=== PATIENT | female | born 1985 | race Caucasian/White ===

== ENCOUNTER → 2016-10-09 | Outpatient (CLI) | payer OTHER ==
[~2016-10-09] MED LIST: AMOX500C3 PO; PRENTAB26 PO
== END | disposition home or self-care (01) ==
LOC: C.PAPS 10:26
PROVIDERS: ATTEND Obstetrics & Gynecology
DX: Z12.4 Encounter for screening for malignant neoplasm of cervix (principal); Z11.51 Encounter for screening for human papillomavirus (HPV)

== ENCOUNTER 2019-12-10 02:44 | Inpatient (IN) ==
[2019-12-10] MEDS ORDERED: LACTATED RINGER'S 1,000 ML IV PRN (03:22)
[2019-12-10] MEDS ORDERED: PENICILLIN G POTASSIUM 3 MU in DEXTROSE 5% 100 ML IV PRN (03:23)
[2019-12-10] MEDS ORDERED: BETAMETH SOD PHOS/ACETATE IA 6 MG/ML IM STA (03:23)
[2019-12-10] MEDS ORDERED: PENICILLIN G POTASSIUM 6 MU in DEXTROSE 5% 250 ML IV STA (03:23)
--- NOTE | 2019-12-10 03:26 | History & Physical Report ---
Date of Service December 10, 2019 Assessment & Plan (1) : Admit to L&D. Labs, EFM/toco, plans for epidural. Reviewed risks of attempt of vaginal twin delivery vs section. She would like to attempt vaginal delivery. Pcn G for GBS prophylaxis. Betamethasone for delivery <37w. CMP with admission labs for gHTN. History of Present Illness Chief Complaint: labor Primary Care Provider: Bobby Faria MD 33yo @ 36 0/7, spontaneous labor. Twins - di/di. Clear ROM at 2 am. complicated by: Obesity complicating , -growth scan at 32 weeks History of PIH first - Baby ASA Twin , dichorionic/diamniotic *Baby ASA daily start 12-28wks until delivery *Anatomy scan @20wks *Serial growth US/S starting @24wks *Wkly NST's @32wks, twice wkly @36wks(nml growth) *Twice wkly NST's @32wks, ICSI or abnml growth *MD visits Q2wks @24wks & Qwk @32wks Gest HTN Biweekly NSTs Weekly CBC, liver profile Induction 12/18 Allergies Allergy/AdvReac Type Severity Reaction Status Date / Time bee venom protein (honey bee) Allergy Severe ANAPHYLAXIS Verified 12/10/19 03:07 No Known Drug Allergies Allergy nkda Verified 12/10/19 03:07 Home Medications Home Medications Medication Instructions Recorded Confirmed Type prenat.vits,thai,yxn-dvso-lfmym 1 tab PO DAILY 05/26/19 12/10/19 History aspirin [Aspirin Low Dose] 81 mg PO DAILY 11/22/19 12/10/19 History Patient History Medical History Abnormal biochemical finding on screening of mother Encounter for anatomic survey Encounter for pre-operative examination History of induced hypertension Low iron HX OF Migraine Migraine Normal delivery atony of uterus with hemorrhage hemorrhage FEBRUARY 2014 Preeclampsia (02/20/14) induced hypertension with history of miscarriage Urinary retention Varicella Surgical History H/O dilation and curettage D&E with curettage 2019 S/P wisdom tooth extraction Family History Grandmother (Maternal) Diabetes Hypertension Ovarian cancer Sister Gestational diabetes Autism Placenta previa Family/Other Heart disease Mother Breast cancer Uterine cancer Social History Smoking Status: Never smoker Second Hand Exposure: Yes ("OCCASIONALLY"); Hx Alcohol Use: No Hx Substance Use: No Preferred Language: Kazakh Communication Ability: Effective Cloth Examiner Machine Required: No Beliefs That Will Affect Care: None marital status: marital status details: Amando Wright (33) [phone] Current Living Situation: Spouse and Family Current Living Situation Comment: 2 dogs current occupational status: employed current occupation: Psychologist with [employer] Other Information That Helps Us Care for You: No Feels Safe at Home: Yes Safety Concerns: Feels Safe At This Time Review of Systems All systems reviewed & are unremarkable except as noted in HPI & below Physical Exam Physical Exam: FHT Cat 1 for both babies. [place] Q 2 Limited bedside US - cephalic/cephalic Cervix 690/0 Constitutional: WD/WN, vitals as above Respiratory: normal respiratory effort, lungs clear to auscultation no respiratory distress Cardiovascular: Rate/Rhythm: regular rate and regular rhythm Gastrointestinal (Abdomen): Inspection/Auscultation: abdomen normal to inspection Percussion/Palpation: abdomen soft; abdomen nontender Gravid. No s/s chorio or abruption. Skin: no rashes, warm and dry Psychiatric: A+Ox3, euthymic affect Results & Data ([facility]) Vital Signs (Past 12 Hours) Vital Signs Temp Pulse Resp BP 12/10/19 03:04 36.8 C 109 H 20 135/92 Coding Level of Care Code None Diagnoses Z34.90
[2019-12-10] MEDS ORDERED: ePHEDrine sulfate 50 MG/ML AMP ONE (03:41)
[2019-12-10] MEDS ORDERED: BUPIVACAINE 0.25% 30 ML VIAL ONE (03:41)
[2019-12-10] MEDS ORDERED: fentaNYL citrate 100 MCG/2 ML VIAL ONE ×2 (03:41→10:36)
[2019-12-10] MEDS ORDERED: fentaNYL 2MCG/ML ROPIV 1.25MG/ML 100 ML BAG EPI ONE (03:42)
[2019-12-10 03:58] LABS: Hematocrit (blood only) 38.2 % (37-47); Hemoglobin 13.2 g/dL (12.0-16.0); Mean Corpuscular Hemoglobin 32.4 pg (25-34); Mean Corpuscular Volume 93.6 fL (80-100); Mean Platelet Volume 11.9 fL (7.4-10.4); Platelet Count 166 K/uL (130-400); RDW Coefficient of Variation 12.6 % (11.5-14.5); Red Blood Count 4.08 M/uL (4.2-5.4); White Blood Count 10.03 K/uL (4.8-10.8)
--- NOTE | 2019-12-10 04:16 | Anesthesiology Consultation ---
Date of Service December 10, 2019 Assessment & Plan Chart Review Chart Review: Acceptable Risk for Surgery, Patient NOT seen in Pre Admission Testing and Acceptable Risk for Labor Epidural Consults Requested none ASA ASA3 Proposed Anesthesia Anesthesia Type: Labor Epidural and CSE Risk / Benefits Reviewed With: PT / POA / Parent / Guardian, Accepts Plan and Informed Consent Obtained Additional Comments: covid test neg. History Height/Weight Height: 5 ft 10 in Weight: 127.913 kg Allergies Allergy/AdvReac Type Severity Reaction Status Date / Time bee venom protein (honey bee) Allergy Severe ANAPHYLAXIS Verified 12/10/19 03:07 No Known Drug Allergies Allergy nkda Verified 12/10/19 03:07 Medications Home Medications Medication Instructions Recorded Confirmed Last Taken prenat.vits,thai,ddo-tnzb-kyhjf 1 tab PO DAILY 05/26/19 12/10/19 12/09/19 17:00 aspirin [Aspirin Low Dose] 81 mg PO DAILY 11/22/19 12/10/19 12/09/19 17:00 Active Medications Generic Name Dose Route Start Last Admin Trade Name Freq PRN Reason Stop Dose Admin Lactated Ringer's 1,000 mls @ 125 mls/hr 12/10/19 03:22 12/10/19 03:33 Lr IV 12/12/19 03:21 999 mls/hr .Q8H PRN Administration L&D Protocol Protocol Penicillin G Potassium 6 mu/ 262 mls @ 262 mls/hr 12/10/19 03:23 12/10/19 03:37 Dextrose IV 12/10/19 04:22 262 mls/hr NOW STA Administration NPO Date Last Intake of Fluids: 12/10/19 Time Last Intake of Fluids: 03:00 Date Last Intake of Solids: 12/09/19 Time Last Intake of Solids: 21:00 Past Medical History Medical History Abnormal biochemical finding on screening of mother Encounter for anatomic survey Encounter for pre-operative examination History of induced hypertension Low iron HX OF Migraine Migraine Normal delivery atony of uterus with hemorrhage hemorrhage FEBRUARY 2014 Preeclampsia (02/20/14) induced hypertension with history of miscarriage Urinary retention Varicella Exercise / Class Metabolic Activity III < 4 Walking/Shop/Light housework Past Family History Family History Grandmother (Maternal) Diabetes Hypertension Ovarian cancer Sister Gestational diabetes Autism Placenta previa Family/Other Heart disease Mother Breast cancer Uterine cancer Past Surgical History Surgical History H/O dilation and curettage D&E with curettage 2019 S/P wisdom tooth extraction Past Anesthesia History No Hx of Anesthesia Complications and No Family Hx of Anesthesia Complications History of PONV No Hx of PONV and No Hx of Motion Sickness Social History Smoking Status: Never smoker Hx Alcohol Use: No Alcohol type: beer, wine and hard liquor alcohol intake frequency: a few times a month Hx Substance Use: No substance use type: does not use Physical Exam Vital Signs Last Vital Signs Temp 36.8 C 12/10/19 03:04 Pulse 112 H 12/10/19 04:12 Resp 20 12/10/19 03:04 BP 154/93 H 12/10/19 04:07 Pulse Ox 100 12/10/19 04:12 Constitutional + morbidly obese ENMT Mouth: no dentition abnormality Thyromental Distance: > or= 3.5 Finger Breadths Mallampati Class: II Neck normal visual inspection and trachea midline Respiratory normal respiratory effort Auscultation: lungs clear to auscultation bilaterally Cardiovascular Rate/Rhythm: regular rate and regular rhythm Heart Sounds: no murmur Vessels: no carotid bruit Musculoskeletal Spine: lumbar spine normal to inspection; normal cervical ROM Neurologic moves all extremities Motor/Sensory: no sensory deficit Psychiatric Orientation: alert and oriented x 3 Testing Laboratory Results 12/10/19 03:41
[2019-12-10 04:17] LABS: Albumin Level 2.5 gm/dl (3.4-5.0); Calcium 9.8 mg/dl (8.5-10.1); Creatinine Clr Calc Pharmacy 166.5 ml/min; Est GFR (African American) 131.9; Est GFR (Non-African American) 113.8; Potassium 3.9 mmol/L (3.5-5.1)
[2019-12-10 04:20] LABS: Albumin Globulin Ratio 0.7 (0.9-2); Bilirubin,Total 0.6 mg/dl (0.2-1); Globulin 3.6 gm/dl (2.5-4.0); Total Protein 6.1 gm/dl (6.4-8.2)
[2019-12-10 04:22] LABS: Mean Corpuscular Hgb Conc 34.6 g/dL (32-36)
[2019-12-10] MEDS ORDERED: fentaNYL 2MCG/ML ROPIV 1.25MG/ML 100 ML BAG EPI PRN (04:46)
[2019-12-10] MEDS ORDERED: PROMETHAZINE HCL 25 MG in SODIUM CHLORIDE 0.9% 50 ML IV PRN (04:46)
[2019-12-10] MEDS ORDERED: NALOXONE HCL 0.4 MG/1 ML VIAL/CARP IV PRN (04:46)
[2019-12-10] MEDS ORDERED: NALOXONE HCL 1 MG in SODIUM CHLORIDE 0.9% 1000ML 1,000 ML IV PRN (04:46)
[2019-12-10] MEDS ORDERED: ONDANSETRON INJ 2 MG/ML 2 ML VIAL IV PRN ×3 (04:46→10:25)
[2019-12-10] MEDS ORDERED: DiphenhydrAMINE HCL 50 MG/ML VIAL IV PRN (04:46)
[2019-12-10] MEDS ORDERED: ePHEDrine sulfate 50 MG/ML AMP IV PRN ×2 (04:46→10:25)
[2019-12-10] MEDS: OXYTOCIN 30 UNITS/500 ML BAG IV PRN ×2 (05:50→06:46)
--- NOTE | 2019-12-10 06:47 | Delivery Summary ---
Vaginal Delivery Summary Date of Service December 10, 2019 Vaginal Delivery Summary Vaginal Delivery Summary: Pre-delivery diagnoses: 33yo @ 36 0/7, spontaneous labor, di/di twins, Rh neg, obesity, gHTN Post-delivery diagnoses: same Procedure: Spontaneous vaginal delivery Surgeon: Annmarie Johnson DO Business Continuity Planner: Manny Cervantes MD Complications: none Findings: Baby A: Viable female , Apgars 9/9. Baby B: Viable male , Apgars 9/9. Weight pending, please see nursery records Estimated blood loss: 300ml Description of delivery: The patient progressed to complete with epidural anesthesia. She was then taken to the operating room with a double setup for both vaginal delivery and section if needed. All parties were present prior to pushing - 2 obstetricians, net web developer, and anesthesiologist. She then began to push. She spontaneously vaginally delivered a viable from the cephalic presentation. No nuchal cord. The head delivered in EBER position. The anterior shoulder delivered, followed by the posterior shoulder, followed by the body. A spontaneous cry was heard. The cord was doubly clamped and cut and the baby was handed off to the waiting net web developer. Ultrasound confirmed cephalic presentation of second baby. AROM was performed with an amnihook, and Baby B's head was guided into the pelvis with packing line operator's hand. Baby B was delivered from an occiput posterior presentation, bilateral shoulders and body followed. No nuchal cord. Cord blood was obtained. Placenta A avulsed from the umbilical cord during delivery attempt, and therefore Placenta B was delivered spontaneously intact, then Placenta A was delivered via manual extraction. Sweep of the uterus revealed no remaining placental fragments. The uterus and vagina were swept of clots and debris. IV pitocin was given. The uterus became firm. The cervix, vagina, and perineum were inspected and a superficial laceration was noted in left labia minora near urethra. This was bleeding, therefore it was reapproximated with 3-0 vicryl in a running locked stitch. Excellent hemostasis was achieved. The mother and babies are recovering in stable and good condition- mother will be moved back into her labor room, and babies have been taked to the nursery for further routine eval. Sponge, needle and instrument counts were correct x 2. Annmarie B. Alex, DO FACOOG [facility] Vaginal Delivery Charge Vaginal Delivery Codes: 49582 global code for the antepartum, delivery, and post-
[2019-12-10] MEDS ORDERED: METHYLERGONOVINE MALEATE 0.2 MG/ML AMP ONE (06:58)
[2019-12-10] MEDS ORDERED: METHYLERGONOVINE MALEATE 0.2 MG/ML AMP IM STA (07:00)
[2019-12-10] MEDS ORDERED: DIPHTHERIA/TETANUS/PERTUSSIS 0.5 ML SYR/VIAL IM ONE (07:10)
[2019-12-10] MEDS ORDERED: OXYTOCIN 30 UNITS/500 ML BAG IV PRN (07:10)
[2019-12-10] MEDS ORDERED: HYDROCORTISONE ACETATE 25 MG SUPP PR PRN (07:10)
[2019-12-10] MEDS ORDERED: SUPERCREAM 0.870% 15 GM JAR EXT PRN (07:10)
[2019-12-10] MEDS ORDERED: OXYCODONE/ACETAMINOPHEN 5mg/325mg TAB PO PRN (07:10)
[2019-12-10] MEDS ORDERED: bisacodyL 10 MG SUPP PR PRN (07:10)
[2019-12-10] MEDS ORDERED: BENZOCAINE 20% AER SPR 82.5 GM CAN EXT PRN (07:10)
[2019-12-10] MEDS ORDERED: ACETAMINOPHEN 325 MG TAB PO PRN (07:10)
[2019-12-10] MEDS ORDERED: CARBOPROST TROMETHAMINE 250 MCG/ML AMPUL IM ONE (07:34)
[2019-12-10] MEDS ORDERED: CARBOPROST TROMETHAMINE 250 MCG/ML AMPUL ONE (07:34)
[2019-12-10] MEDS ORDERED: TRANEXAMIC ACID / 0.7% NACL 1,000 MG/100 ML BAG IV STA (07:34)
[2019-12-10] MEDS ORDERED: TRANEXAMIC ACID / 0.7% NACL 1000MG/100ML BAG IV ONE (07:35)
--- NOTE | 2019-12-10 07:39 | Obstetrical Progress Note ---
Date of Service December 10, 2019 Assessment & Plan Admission and Anticipated Discharge Date Admission Date: December 10, 2019 Subjective Called to room for expression of large amount of clots from vagina - weighed for 970cc. 1 dose methergine given. Bleeding appeared to resolve to a normal lochia. Then, was called back to room with another 145cc blood (weighed chux and pad). Will place shannon, check CBC and coags. Tranexamic acid, hemabate and continue pitocin. On exam, uterus is firm. Patient is awake, sitting up, talking and comfortably. Vitals stable. Results & Data ([facility]) Vital Signs (Past 12 Hours) Vital Signs Temp Pulse Resp BP Pulse Ox 12/10/19 07:25 99 H 138/88 12/10/19 07:10 93 H 132/88 12/10/19 06:54 96 H 18 136/82 12/10/19 06:40 88 18 130/79 12/10/19 06:36 18 12/10/19 06:25 88 137/76 12/10/19 06:12 100 H 98 12/10/19 06:07 108 H 98 12/10/19 06:02 102 H 98 12/10/19 05:58 91 H 152/119 H 12/10/19 05:57 103 H 98 12/10/19 05:52 117 H 99 12/10/19 05:47 114 H 98 12/10/19 05:44 126 H 136/98 12/10/19 05:42 147 H 100 12/10/19 05:40 108 H 92 12/10/19 05:37 124 H 100 12/10/19 05:33 101 H 91 12/10/19 05:32 104 H 97 12/10/19 05:29 100 H 18 132/92 12/10/19 05:17 101 H 140/74 12/10/19 05:13 109 H 18 142/79 H 12/10/19 05:12 106 H 100 12/10/19 05:07 117 H 100 12/10/19 05:02 105 H 99 12/10/19 05:01 118 H 18 137/96 12/10/19 04:58 36.5 C 109 H 18 143/85 H 12/10/19 04:57 108 H 100 12/10/19 04:55 112 H 121/69 12/10/19 04:52 107 H 18 125/72 99 12/10/19 04:50 116 H 91 12/10/19 04:49 115 H 122/65 12/10/19 04:47 114 H 99 12/10/19 04:46 107 H 131/81 12/10/19 04:43 98 H 127/62 12/10/19 04:42 104 H 98 12/10/19 04:40 100 H 149/84 H 12/10/19 04:37 114 H 18 144/96 H 98 12/10/19 04:34 116 H 18 144/91 H 12/10/19 04:32 119 H 99 12/10/19 04:27 124 H 95 12/10/19 04:22 115 H 100 12/10/19 04:17 110 H 99 12/10/19 04:12 112 H 100 12/10/19 04:07 99 H 154/93 H 99 12/10/19 04:02 95 H 100 12/10/19 03:57 99 H 99 12/10/19 03:52 95 H 98 12/10/19 03:47 98 H 99 12/10/19 03:04 36.8 C 109 H 20 135/92 PG Care Time/CCT Total # of Minutes Spent Total Time Spent with Patient: Total time spent is greater than 50% in coordination of care (as documented) at patient's floor/unit and/or counseling patient: Coding Level of Care Code None
[2019-12-10] MEDS: CEFAZOLIN 1000MG 1,000 MG/7.5 ML SYR IV SCH ×3 (07:51→23:40)
[2019-12-10] MEDS ORDERED: ONDANSETRON INJ 2 MG/ML 2 ML VIAL ONE (07:58)
[2019-12-10 08:06] LABS: Hemoglobin 13.3 g/dL (12.0-16.0); Mean Corpuscular Hemoglobin 32.4 pg (25-34); Mean Corpuscular Volume 92.7 fL (80-100); Mean Platelet Volume 11.7 fL (7.4-10.4); Platelet Count 177 K/uL (130-400); RDW Coefficient of Variation 12.5 % (11.5-14.5); RDW Standard Deviation 42.4 fL (36.4-46.3); White Blood Count 17.61 K/uL (4.8-10.8)
[2019-12-10 08:16] LABS: Fibrinogen 392 mg/dl (184-400); Partial Thromboplastin Ratio 1.1; Partial Thromboplastin Time 31.2 Seconds (21.0-31.0); Prothrombin Time 10.8 Seconds (9.0-12.0)
--- NOTE | 2019-12-10 08:40 | Anesthesia Procedure Note ---
Date of Service December 10, 2019 Anesthesia Post Epidural Note Vital Signs Vital Signs: Temp Pulse Resp BP Pulse Ox 36.5 C 88 20 141/75 H 98 12/10/19 04:58 12/10/19 08:24 12/10/19 07:25 12/10/19 08:24 12/10/19 06:12 Notes Mental Status: alert / awake / arousable Nausea / Vomiting: adequately controlled Pain: adequately controlled Airway Patency, RR, SpO2: stable & adequate BP & HR: stable & adequate Hydration State: stable & adequate Neuraxial Anesthesia: was administered and sensory block is resolving Anesthetic Complications: no major complications apparent Epidural: Removed without complications and With tip intact
[2019-12-10] MEDS: OXYTOCIN 20 UNITS in LACTATED RINGER'S 1,000 ML IV SCH ×2 (09:43→14:20)
--- NOTE | 2019-12-10 10:01 | Obstetrical Progress Note ---
Date of Service Patient continues to have bleeding I did an examination in the room at that time it appeared to be a possible cervical laceration the patient's epidural had been removed at this stage I could not comfortably visualize whether this was a full laceration or just the shape of the cervix extending posteriorly however it does look like a laceration and she still is actively bleeding and needs an exam regardless anesthesia has been consulted I called Dr. Gan and as well we will examine possible repair cervical laceration exam under anesthesia note her labs are normal at this stage from 7:30 in the morning her INR is normal her PTT is top normal range her hemoglobin is over 13 discussed the risks of doing this however since she is actively bleeding I do not think it is an option to monitor the situation further without intervention December 10, 2019 Assessment & Plan Admission and Anticipated Discharge Date Admission Date: December 10, 2019 Results & Data ([facility]) Vital Signs (Past 12 Hours) Vital Signs Temp Pulse Resp BP Pulse Ox 12/10/19 09:55 67 146/79 H 12/10/19 09:39 67 140/91 12/10/19 09:10 77 147/93 H 12/10/19 08:54 80 142/78 H 12/10/19 08:40 20 12/10/19 08:39 82 140/74 12/10/19 08:25 20 12/10/19 08:24 88 141/75 H 12/10/19 08:10 84 20 140/73 12/10/19 07:54 78 152/92 H 12/10/19 07:51 80 152/92 H 12/10/19 07:50 20 12/10/19 07:25 99 H 20 138/88 12/10/19 07:10 93 H 20 132/88 12/10/19 06:54 96 H 18 136/82 12/10/19 06:40 88 18 130/79 12/10/19 06:36 18 12/10/19 06:25 88 137/76 12/10/19 06:12 100 H 98 12/10/19 06:07 108 H 98 12/10/19 06:02 102 H 98 12/10/19 05:58 91 H 152/119 H 12/10/19 05:57 103 H 98 12/10/19 05:52 117 H 99 12/10/19 05:47 114 H 98 12/10/19 05:44 126 H 136/98 12/10/19 05:42 147 H 100 12/10/19 05:40 108 H 92 12/10/19 05:37 124 H 100 12/10/19 05:33 101 H 91 12/10/19 05:32 104 H 97 12/10/19 05:29 100 H 18 132/92 12/10/19 05:17 101 H 140/74 12/10/19 05:13 109 H 18 142/79 H 12/10/19 05:12 106 H 100 12/10/19 05:07 117 H 100 12/10/19 05:02 105 H 99 12/10/19 05:01 118 H 18 137/96 12/10/19 04:58 97.7 F 109 H 18 143/85 H 12/10/19 04:57 108 H 100 12/10/19 04:55 112 H 121/69 12/10/19 04:52 107 H 18 125/72 99 12/10/19 04:50 116 H 91 12/10/19 04:49 115 H 122/65 12/10/19 04:47 114 H 99 12/10/19 04:46 107 H 131/81 12/10/19 04:43 98 H 127/62 12/10/19 04:42 104 H 98 12/10/19 04:40 100 H 149/84 H 12/10/19 04:37 114 H 18 144/96 H 98 12/10/19 04:34 116 H 18 144/91 H 12/10/19 04:32 119 H 99 12/10/19 04:27 124 H 95 12/10/19 04:22 115 H 100 12/10/19 04:17 110 H 99 12/10/19 04:12 112 H 100 12/10/19 04:07 99 H 154/93 H 99 12/10/19 04:02 95 H 100 12/10/19 03:57 99 H 99 12/10/19 03:52 95 H 98 12/10/19 03:47 98 H 99 12/10/19 03:04 98.2 F 109 H 20 135/92 PG Care Time/CCT Total # of Minutes Spent Total Time Spent with Patient: Total time spent is greater than 50% in coordination of care (as documented) at patient's floor/unit and/or counseling patient: Coding Level of Care Code None
--- NOTE | 2019-12-10 10:10 | Anesthesiology Consultation ---
Date of Service December 10, 2019 Assessment & Plan (1) Encounter for pre-operative examination: Chart Review Chart Review: Acceptable Risk for Surgery Consults Requested none ASA [id number] Proposed Anesthesia Anesthesia Type: Spinal Risk / Benefits Reviewed With: PT / POA / Parent / Guardian, Accepts Plan and Informed Consent Obtained History Surgery Operation Date: 12/10/19 09:30 Proposed Procedures p Labor Delivery Repair Vaginal Laceration - Jayme Cervantes MD, FACOG Height/Weight Height: 5 ft 10 in Weight: 127.913 kg Allergies Allergy/AdvReac Type Severity Reaction Status Date / Time bee venom protein (honey bee) Allergy Severe ANAPHYLAXIS Verified 12/10/19 03:07 No Known Drug Allergies Allergy nkda Verified 12/10/19 03:07 Medications Home Medications Medication Instructions Recorded Confirmed Last Taken prenat.vits,thai,mgl-wthv-bgaip 1 tab PO DAILY 05/26/19 12/10/19 12/09/19 17:00 aspirin [Aspirin Low Dose] 81 mg PO DAILY 11/22/19 12/10/19 12/09/19 17:00 Active Medications Generic Name Dose Route Start Last Admin Trade Name Freq PRN Reason Stop Dose Admin Oxytocin 30 units in 500 mls @ 333.333 mls/hr 12/10/19 07:10 12/10/19 07:50 Pitocin IV 01/09/20 07:09 59.94 units/hr .Q1H30M PRN 999 mls/hr Bleeding Control Administration Protocol 20 UNITS/HR Cefazolin Sodium 1,000 mg in 7.5 mls @ 2.5 mls/min 12/10/19 07:30 12/10/19 07:51 Ancef 1000mg IV 12/10/19 23:32 2.5 mls/min Q8H RICHARD Administration Oxytocin 20 units/ Lactated 1,002 mls @ 125 mls/hr 12/10/19 09:15 12/10/19 09:43 Ringer's IV 12/10/19 17:15 125 mls/hr .Q8H1M RICHARD Administration NPO Date Last Intake of Fluids: 12/10/19 Time Last Intake of Fluids: 03:00 Date Last Intake of Solids: 12/09/19 Time Last Intake of Solids: 21:00 Past Medical History Medical History Abnormal biochemical finding on screening of mother Encounter for anatomic survey Encounter for pre-operative examination History of induced hypertension Low iron HX OF Migraine Migraine Normal delivery atony of uterus with hemorrhage hemorrhage FEBRUARY 2014 Preeclampsia (02/20/14) induced hypertension with history of miscarriage Urinary retention Varicella Exercise / Class Metabolic Activity II 4-5 Yardwork/Stairs/Walk up hill Past Family History Family History Grandmother (Maternal) Diabetes Hypertension Ovarian cancer Sister Gestational diabetes Autism Placenta previa Family/Other Heart disease Mother Breast cancer Uterine cancer Past Surgical History Surgical History H/O dilation and curettage D&E with curettage 2019 S/P wisdom tooth extraction Past Anesthesia History No Hx of Anesthesia Complications and No Family Hx of Anesthesia Complications History of PONV No Hx of PONV and No Hx of Motion Sickness Social History Smoking Status: Never smoker Hx Alcohol Use: No Alcohol type: beer, wine and hard liquor alcohol intake frequency: a few times a month Hx Substance Use: No substance use type: does not use Physical Exam Vital Signs Last Vital Signs Temp 98.6 F 12/10/19 09:10 Pulse 67 12/10/19 09:55 Resp 20 12/10/19 08:40 BP 146/79 H 12/10/19 09:55 Pulse Ox 98 12/10/19 06:12 ENMT Mouth: no dentition abnormality Thyromental Distance: > or= 3.5 Finger Breadths Mallampati Class: III Neck normal visual inspection Respiratory normal respiratory effort Auscultation: lungs clear to auscultation bilaterally Cardiovascular Rate/Rhythm: regular rate and regular rhythm Testing Laboratory Results 12/10/19 07:47 12/10/19 03:41 PT 10.8 Seconds (9.0-12.0) 12/10/19 07:47 INR 1.0 (0.9-1.1) 12/10/19 07:47 APTT 31.2 Seconds (21.0-31.0) H 12/10/19 07:47
[2019-12-10] MEDS ORDERED: ATROPINE SULFATE 0.1 MG/ML 10ML SYR IV PRN (10:25)
[2019-12-10] MEDS ORDERED: fentaNYL citrate 100 MCG/2 ML VIAL IV PRN (10:25)
[2019-12-10] MEDS ORDERED: CEFAZOLIN 250 MG/ML 1 GM VIAL ONE (10:36)
[2019-12-10] MEDS ORDERED: SILVER NITR/POTASSIUM NITRATE APPLICATOR ONE (11:09)
--- NOTE | 2019-12-10 11:19 | Operative Report ---
PG Post Operative Report Pre & Post Diagnosis Operation Date: 12/10/19 09:30 Pre-Op Diagnosis: Post hemohrrage Twins Post-Op Diagnosis: Exam under anesthesia Repair of cervical laceration I identified the patient and participated in the time-out.: Yes Procedure Operation Date: 12/10/19 09:30 Actual Procedures p Labor Delivery Repair Vaginal Laceration(Bilateral) - Jayme Cervantes MD, FACOG Surgeon Jayme Cervantes MD, FACOG Valet Parker Dr. Johnson Estimated Blood Loss 150 Findings Consistent with Post-Op Diagnosis Specimens POC Description of Procedure Patient given a spinal anesthetic prepped and draped in dorsal lithotomy position Sumner catheter in place compression stockings applied weighted speculum placed in the vagina Betadine used to irrigate and cleanse the vagina and cervix the cervix was fully examined there was a tear between 4 and 5:00 on the cervix that extended for 3 to 4 cm. There was some bleeding from this part of the cervix to ensure that this was not the only cause of bleeding we also did a bimanual exam both me and Dr. Koo which may have been clot and may have been placenta the uterus was firm there was no perforation to it did extract some tissue. It should be noted the patient required some fentanyl at this time to allow that part of the exam at the end we felt we removed as much as possible The laceration was then repaired with 3-0 Vicryl we started at the apex and ensured closure doing a running nonlocked suture. We then did a reinforcing layer as well. We ensured the cervix was still patent after closing the laceration. There was a small lateral vaginal bleeding site which was treated with silver nitrate bleeding was at the end of the procedure much more minimal hemostasis seemed improved we did push on the uterus and there was some bleeding from fundal massage however it seemed more within normal range of after twin delivery I attest to the content of the Intraoperative Record and any orders documented therein. Any exceptions are noted below.
--- NOTE | 2019-12-10 11:41 | Anesthesiology Progress Note ---
Date of Service December 10, 2019 Anesthesia Post Procedure Vital Signs Vital Signs: Temp Pulse Resp BP Pulse Ox 12/10/19 11:38 63 93 12/10/19 11:35 62 137/76 97 12/10/19 11:33 69 142/110 H 12/10/19 11:32 72 94 12/10/19 11:30 67 97 12/10/19 11:25 67 97 12/10/19 11:22 62 133/87 12/10/19 10:09 61 131/80 12/10/19 09:55 67 146/79 H 12/10/19 09:39 67 140/91 12/10/19 09:10 98.6 F 77 147/93 H 12/10/19 08:54 80 142/78 H 12/10/19 08:40 20 12/10/19 08:39 82 140/74 12/10/19 08:25 20 12/10/19 08:24 88 141/75 H 12/10/19 08:10 84 20 140/73 12/10/19 07:54 78 152/92 H 12/10/19 07:51 80 152/92 H 12/10/19 07:50 20 12/10/19 07:25 99 H 20 138/88 12/10/19 07:10 98.4 F 93 H 20 132/88 12/10/19 06:54 96 H 18 136/82 12/10/19 06:40 88 18 130/79 12/10/19 06:36 18 12/10/19 06:25 88 137/76 12/10/19 06:12 100 H 98 12/10/19 06:07 108 H 98 12/10/19 06:02 102 H 98 12/10/19 05:58 91 H 152/119 H 12/10/19 05:57 103 H 98 12/10/19 05:52 117 H 99 12/10/19 05:47 114 H 98 12/10/19 05:44 126 H 136/98 12/10/19 05:42 147 H 100 12/10/19 05:40 108 H 92 12/10/19 05:37 124 H 100 12/10/19 05:33 101 H 91 12/10/19 05:32 104 H 97 12/10/19 05:29 100 H 18 132/92 12/10/19 05:17 101 H 140/74 12/10/19 05:13 109 H 18 142/79 H 12/10/19 05:12 106 H 100 12/10/19 05:07 117 H 100 12/10/19 05:02 105 H 99 12/10/19 05:01 118 H 18 137/96 12/10/19 04:58 97.7 F 109 H 18 143/85 H 12/10/19 04:57 108 H 100 12/10/19 04:55 112 H 121/69 12/10/19 04:52 107 H 18 125/72 99 12/10/19 04:50 116 H 91 12/10/19 04:49 115 H 122/65 12/10/19 04:47 114 H 99 12/10/19 04:46 107 H 131/81 12/10/19 04:43 98 H 127/62 12/10/19 04:42 104 H 98 12/10/19 04:40 100 H 149/84 H 12/10/19 04:37 114 H 18 144/96 H 98 12/10/19 04:34 116 H 18 144/91 H 12/10/19 04:32 119 H 99 12/10/19 04:27 124 H 95 12/10/19 04:22 115 H 100 12/10/19 04:17 110 H 99 12/10/19 04:12 112 H 100 12/10/19 04:07 99 H 154/93 H 99 12/10/19 04:02 95 H 100 12/10/19 03:57 99 H 99 12/10/19 03:52 95 H 98 12/10/19 03:47 98 H 99 12/10/19 03:04 98.2 F 109 H 20 135/92 Transfer of Care Handoff Completed per policy Notes Mental Status: alert / awake / arousable and participated in evaluation Nausea / Vomiting: adequately controlled Pain: adequately controlled Airway Patency, RR, SpO2: stable & adequate BP & HR: stable & adequate Hydration State: stable & adequate Neuraxial Anesthesia: was administered and sensory block is resolving Anesthetic Complications: no major complications apparent and Pt Satisfied with anesthetic care
[2019-12-10 11:52] LABS: Basophils # (auto) 0.01 K/uL (0-0.2); Basophils % (auto) 0.1 %; Hematocrit (blood only) 37.7 % (37-47); Hemoglobin 13.6 g/dL (12.0-16.0); Immature Granulocytes # (auto) 0.07 K/uL (0.00-0.02); Immature Granulocytes % (auto) 0.4 %; Lymphocytes # (auto) 1.16 K/uL (1.2-3.4); Lymphocytes % (auto) 5.9 %; Mean Corpuscular Hemoglobin 33.3 pg (25-34); Mean Corpuscular Hgb Conc 36.1 g/dL (32-36); Mean Corpuscular Volume 92.4 fL (80-100); Mean Platelet Volume 11.6 fL (7.4-10.4); Monocytes # (auto) 0.42 K/uL (0.11-0.59); Monocytes % (auto) 2.1 %; Neutrophils # (auto) 17.98 K/uL (1.4-6.5); Neutrophils % (auto) 91.5 %; Platelet Count 178 K/uL (130-400); RDW Coefficient of Variation 12.3 % (11.5-14.5); RDW Standard Deviation 41.7 fL (36.4-46.3); Red Blood Count 4.08 M/uL (4.2-5.4); White Blood Count 19.64 K/uL (4.8-10.8)
[2019-12-10 12:03] LABS: Partial Thromboplastin Ratio 1.2; Partial Thromboplastin Time 32.7 Seconds (21.0-31.0); Prothrombin Time 10.9 Seconds (9.0-12.0)
[2019-12-10 12:09] LABS: Albumin Level 2.4 gm/dl (3.4-5.0); BUN Creatinine Ratio 12.6 (10-20); Calcium 9.2 mg/dl (8.5-10.1); Creatinine Clr Calc Pharmacy 159.7 ml/min; Est GFR (African American) 125.4; Est GFR (Non-African American) 108.2; Potassium 4.4 mmol/L (3.5-5.1)
[2019-12-10 12:12] LABS: Albumin Globulin Ratio 0.7 (0.9-2); Bilirubin,Total 0.4 mg/dl (0.2-1); Globulin 3.5 gm/dl (2.5-4.0); Total Protein 5.9 gm/dl (6.4-8.2)
[2019-12-10] MEDS: IBUPROFEN 600 MG TAB PO PRN ×3 (12:50→21:05)
[2019-12-10] MEDS: DOCUSATE SODIUM 100 MG CAP PO SCH ×2 (14:15→21:04)
[2019-12-10] MEDS: PRENATAL VITAMIN 1 TAB PO SCH (14:15)
[2019-12-11 06:44] LABS: Hematocrit (blood only) 29.9 % (37-47); Hemoglobin 10.6 g/dL (12.0-16.0)
[2019-12-11] MEDS: IBUPROFEN 600 MG TAB PO PRN ×3 (06:59→17:18)
[2019-12-11] MEDS: DOCUSATE SODIUM 100 MG CAP PO SCH ×2 (08:26→21:09)
[2019-12-11] MEDS: PRENATAL VITAMIN 1 TAB PO SCH (08:26)
--- NOTE | 2019-12-11 08:29 | Obstetrical Progress Note ---
Date of Service December 11, 2019 Assessment & Plan (1) state: Hb reasonable ambultion, feeding (2) Cervical laceration: resolved with surgical repair Subjective Ambulation: ambulating normally Voiding: no voiding problems Diet Tolerance:: regular diet Lochia:: Small Feeding Type:: breast feeding Current Pain Level(1-10): 0 Physical Exam Constitutional WD/WN, vitals as above Gastrointestinal (Abdomen) normal bowel sounds, soft, nontender, no hepatosplenomegaly Results & Data ([facility]) Vital Signs (Past 12 Hours) Vital Signs Temp Pulse Resp BP 12/11/19 04:55 98.2 F 88 18 112/78 12/11/19 00:25 97.7 F 78 16 103/69
[2019-12-11] MEDS ORDERED: bisacodyL 5 MG TABEC PO SCH (20:00)
[2019-12-12] MEDS: IBUPROFEN 600 MG TAB PO PRN ×3 (05:48→16:30)
--- NOTE | 2019-12-12 06:15 | Obstetrical Progress Note ---
Date of Service December 12, 2019 Assessment & Plan (1) state: (1) state: no problems with feeding . last Hb 12/10 was reasonable. (2) Cervical laceration: resolved with surgical repair Admission and Anticipated Discharge Date Admission Date: December 10, 2019 Supervising Physician Co-Signing Physician Notes Resident Physician Supervision Note: I was present with Dr. Raman during the history and exam. I discussed the case with the resident and agree with the findings and plan as documented in the note. Any exceptions or clarifications are listed here: [None] Documented By: Jayme Cervantes MD, FACOG Subjective Patient denies new complaints. She didn't sleep too well last night. She is eating and voiding. Lochia physiologic, no clots. Some cramping/bleeding during /pumping. Last BM was before admission, but no constipation or diar alex. Ambulating. Review of Systems Review of Systems: Denies fever, chills, sweats Denies shortness of breath, difficulty breathing, chest pain, palpitations, chest pressure. Denies dysuria. Denies headache. Denies nausea/vomiting. Denies abdominal pain. Physical Exam Physical Exam: General: Alert, oriented. No acute distress. Cardiac: Tachycardic rate and regular rhythm, no murmurs/rubs/gallops. Respiratory: Clear to auscultation anterior and posteriorly, no wheezes/rales/rhonchi. No increased work of breathing. Symmetrical chest rise. No respiratory distress. Abdomen: Soft, nontender, nondistended. Bowel sounds present. Uterus: Uterine fundus firm, palpable 4 cm below umbilicus. Lower Extremities: No lower extremity edema or swelling. No deep calf pain. Kalyani's negative bilaterally. Results & Data ([facility]) Vital Signs (Past 12 Hours) Vital Signs Temp Pulse Pulse Resp BP Pulse Ox 12/11/19 23:00 36.4 C L 72 18 144/80 H 97 12/11/19 19:30 37.1 C 86 18 135/86 97
[2019-12-12] MEDS: PRENATAL VITAMIN 1 TAB PO SCH (09:01)
[2019-12-12] MEDS: DOCUSATE SODIUM 100 MG CAP PO SCH (09:01)
== END 2019-12-12 18:23 | disposition home or self-care (01) | DRG 807 ==
LOC: OPB 02:44 → 4S1 02:51 → 4S2 14:25